=== PATIENT | female | born 1975 | race Caucasian/White ===

== ENCOUNTER 2024-05-12 00:50 | Emergency (ER) | payer BC, SELFPAY ==
[2024-05-12 00:54] VITALS: BP 117/80
--- NOTE | 2024-05-12 02:03 | ED.GENMED ---
History of Present Illness
General
Chief Complaint: Anxiety
Source: patient
Exam Limitations: none
Time Seen by Provider: 05/12/24 01:48
Nursing documentation reviewed up to this point in time: agreed with
History of Present Illness
History of Present Illness:
This is a 48 y/o female with a pmh of anxiety, hyperlipidemia presenting to the emergency department today with concerns of a panic attack. Patient reports that at around approximately 10:00 pm today, she took THC candy and a glass of wine to try to
help her sleep. She reports that 2 hours later, she woke up at 12 AM and had a sudden onset of severe anxiety. Patient states that this was more severe than panic attacks she has had in the past. Patient states that at the time, she felt short of
breath, was hyperventilating, and felt like she had numbness and tingling in her body. Patient states that she normally gets around 1 panic per month. Patient admits that she has not always take her Lexapro every day. Patient subsequently called
EMS. Patient states that throughout the emergency department and while sitting here, she did deep breathing exercises which relieved much of her symptoms. Now, patient reports that she has some anxiety and feels 'foggy in the head' but much of her
panic symptoms have resolved. Patient denies suicidal or homicidal ideation. Patient states that she has had tried THC once in the past but this was a while ago in [place] and reports that she did not have any side effects or symptoms at that
time.
Review of Systems
Review of Systems
All Other Systems: ROS reviewed and negative except as documented in HPI and ROS
Phy Exam
Physical Exam
Physical Exam:
General: Patient is well appearing and in no acute distress; non-toxic
Skin: Warm and dry, no rashes or lesions
Head: Normocephalic, atraumatic
Eyes: Sclera non-icteric. EOMs intact. PERRLA.
Cardiac: Regular rate and rhythm, no murmurs
Pulm: Normal respiratory effort, no wheezes, rales, or rhonchi
Neuro: CN II-XII intact, no focal neurologic deficits.
Psychiatric: Appropriate mood and affect.
Course
Orders/Labs/Results
Orders:
Orders
05/12/24 02:31
Lorazepam [Ativan] 0.5 mg PO NOW STA
05/12/24 02:35
Lorazepam [Ativan] 1 mg PO NOW STA
Vital Signs
Initial and Last Documented VS:
Initial Vital Signs
Temp Pulse Resp BP Pulse Ox
97.9 F 96 16 117/80 99
05/12/24 00:54 05/12/24 00:54 05/12/24 00:54 05/12/24 00:54 05/12/24 00:54
Last Documented Vital Signs
Temp Pulse Resp BP Pulse Ox
97.9 F 86 18 127/87 96
05/12/24 00:54 05/12/24 02:38 05/12/24 02:38 05/12/24 02:38 05/12/24 02:38
MDM/Problems Addressed
Differential Diagnosis Includes:
Differentials include generalized anxiety disorder, panic attack disorder, THC side effect/poisoning
MDM/Problems Addressed:
This is a 48 y/o female with a pmh of anxiety, hyperlipidemia presenting to the emergency department today with concerns of a panic attack. Patient reports that at around approximately 10:00 pm today, she took THC candy and a glass of wine to try to
help her sleep. She reports that 2 hours later, she woke up at 12 AM and had a sudden onset of severe anxiety. Patient states that while here in the emergency department and route, her symptoms have largely resolved. Patient did have some
persistent anxiety here. She was given 1 mg of Ativan by mouth here in emergency department. On reassessment, patient does note that anxiety is resolved but she does have some fogginess which we discussed could be side effects of marijuana.
Discussed follow-up with her primary in light of her panic attacks, discussed regular use of Lexapro. Patient stable for discharge
*Pulse Oximetry
Patient hypoxic: no
*Critical Care Note
Total Time (30-74mins, 75-104mins- exclusive of procedures): Not Applicable
Data Reviewed
Review of Other/Old Records Reveals: Records (No previous ER physician documentation to review) and Discharge Summary (Improves to show returns to review)
Source: patient and records
Prescriptions/Medications Considered But Not Given:
n/a
Further Testing Considered But Not Given:
n/a
Patient Management
Escalation/DeEscalation of care consider admission/obs:
Admit not indicated, reviewed case with my attending Dr. Man
Update Note
Update Note:
2:58 am--Patient sleeping upon my arrival to the room. Patient states that she still feels a bit 'foggy' in the head but states that generally her anxiety has resolved.
ED Attending Note
-
Portions of this chart may have been created with voice recognition software.� Occasional wrong word or��sound alike� substitutions may have occurred due to the inherent limitations of voice recognition software.
Discharge Plan
Departure
Patient Disposition: Home (Routine Discharge)
Date of Disposition: 05/12/24
Time of Disposition: 03:17
Patient with high blood pressure during this ER visit?: Yes
Condition: Good
Discharge Problem:
Anxiety, Marijuana use, episodic
Instructions: Anxiety, Adult (DC), Marijuana, BLOOD PRESSURE
Prescriptions:
No Action
escitalopram oxalate [Lexapro] 10 mg Tablet
10 mg PO DAILY
rosuvastatin [Crestor] 10 mg Tablet
10 mg PO DAILY
Activity Restrictions/Additional Instructions:
Please follow up with your primary care provider, please call today to schedule an appointment.
Please take your Lexapro regularly and refrain from THC use as this can cause panic attacks.
Please return to the emergency department for chest pain, shortness of breath, seizure-like activity, or any other signs or symptoms concerning to you.
Interventions
Interventions:
*Risk Screen - Suicide Last Done: 05/12/24 00:54
*General Assessment Last Done: 05/12/24 02:37
*Neglect/Abuse Screening Last Done: 05/12/24 00:54
*ED COVID-19 Vaccine History Last Done: 05/12/24 02:37
*Nursing Disposition Last Done: 05/12/24 03:29
ED- Cardiac Assessment Last Done: 05/12/24 02:35
ED-Psychological Assessment Last Done: 05/12/24 02:35
ED- Pulmonary Assessment Last Done: 05/12/24 02:35
Discharge Date and Time
Discharge Date/Time: 05/12/24 03:38
Print Language: TUNISIAN
[2024-05-12 02:37] VITALS: BMI 28.7
[2024-05-12 02:38] VITALS: BP 127/87
[2024-05-12] MEDS: ATIVAN 1 MG PO (02:41)
== END 2024-05-12 03:38 | disposition home or self-care (01) ==
LOC: EMR 00:50
PROVIDERS: EMERGENCY PHYSICIAN Emergency Medicine; FAMILY PHYSICIAN Internal Medicine
DX: F41.9 Anxiety disorder, unspecified (principal); F12.90 Cannabis use, unspecified, uncomplicated; E78.00 Pure hypercholesterolemia, unspecified
CPT/HCPCS: 99282